=== PATIENT | male | born 1935 | race Caucasian/White ===

== ENCOUNTER 2021-09-11 13:50 | Emergency (ER) | payer OTHER, MEDICARE, BC ==
[2021-09-11] MEDS ORDERED: Lidocaine/Epineph/Tetracaine 3 ML Syringe TOP ONE (13:57)
[2021-09-11] MEDS ORDERED: Bacitracin Oint 1 GM U/D Packet ONE (15:01)
[2021-09-11] MEDS ORDERED: Bacitracin Oint 1 GM U/D Packet TOP ONE (15:01)
== END 2021-09-11 15:36 | disposition home or self-care (01) ==
LOC: JP.ED 13:50
DX: S06.0X9A Concussion with loss of consciousness of unspecified duration, initial encounter (principal); S01.112A Laceration without foreign body of left eyelid and periocular area, initial encounter; Z79.899 Other long term (current) drug therapy; V18.0XXA Pedal cycle driver injured in noncollision transport accident in nontraffic accident, initial encounter; Y92.410 Unspecified street and highway as the place of occurrence of the external cause
CPT/HCPCS: 12011; 70450; 70450-26; 99282; 99283-25; A9270-GY